=== PATIENT | female | born 1945 | race Caucasian/White ===

== ENCOUNTER → 2018-06-29 | Outpatient (CLI) | payer OTHER ==
[~2018-06-29] MED LIST: CARVEDILOL12.5 MG PO; CLONIDINE0.1; PAIN & FEVER325 MG PO; TOPROL XL50 MG; XARELTO10 M1 PO
--- NOTE | 2018-06-29 17:25 | CARDNUC ---
[place] [address] CARDIAC NUCLEAR IMAGING REPORT Name: SARINA LOPEZ Room: [facility]#: [id number] Admission: 06/29/18 Attend Phys: Chencho Mac, Discharge: Date of : 41 Date of Service: 06/29/18 1725 Report #: [id number] THIS REPORT FOR: //name// APPROVED REPORT Study performed: 06/29/2018 14:14:40 Exam: Nuclear Stress Test Indication: Dyspnea Patient Location: Out-Patient Stress Tech: Sunita Stress Nurse: Jasmine Wiggins RN NM Tech:BERNARDA Yeager Ht: 5 ft 6 in Wt: 192 lbs BSA: 1.97 m2 BMI: 30.98 Medical History Medical History: hypertension, a fib Medications: amlodipine, digoxin, hctz, carvedilol, xarelto Allergies: nkda Cardiac Risk Factors: age, hypertension, family hx Exercise History: Sedentary Meds Held (24 hrs): carvedilol Stress Test Details Stress Test: Pharmacologic stress testing performed using 0.4 mg of regadenoson per 5 mL given IV over 10 seconds. Reason for pharmacologic stress test: physical limitation. HR Resting HR: 71 bpm Max Heart Rate (APMHR): 146 bpm Max HR Achieved: 72 bpm Target HR (85% APMHR): 124 bpm % of APMHR: 49 Recovery HR: 77 bpm BP Resting BP: 158/54 mmHg Max BP: 185/50 mmHg ECG Resting ECG: atrial fibrillation with right bundle-branch block and diffuse ST segment depression with T-wave inversion Stress ECG: atrial fibrillation with right [place] [address] CARDIAC NUCLEAR IMAGING REPORT Name: SARINA LOPEZ Room: [facility]#: [id number] Admission: 06/29/18 Attend Phys: Chencho Mac, Discharge: Date of : 41 Date of Service: 06/29/18 1725 Report #: [id number] segment depression with T-wave inversion ST Change: None Arrhythmia: None Recovery ECG: atrial fibrillation with right bundle-branch block and diffuse ST segment depression with T-wave inversion Recovery ST Change: None Recovery Arrhythmia: None Clinical Reason for Termination: Completed protocol Exercise duration: 0 min sec Exercise capacity: 1 METs The patient tolerated Lexiscan infusion without significant symptoms. Nurse Comments pt gait to unsteady to walk on treadmill Stress ECG Conclusion The baseline 12-lead EKG shows atrial fibrillation. There is a right bundle-branch block. There is diffuse T-wave inversion with ST segment depression. EKGs obtained during and post Lexiscan infusion showed no significant changes in morphology. There were no other stress-induced arrhythmias. NM EXAM: Myocardial Perfusion REST/STRESS Imaging Protocol: Rest Tc-99m/Stress Tc-99m 1 day Resting Data Rest SPECT myocardial perfusion imaging was performed in supine position 30 minutes following the intravenous injection of 10.9 mCi of Tc-99m Sestamibi. Time of rest injection: 1300 Date: 06/29/2018 The images were gated to evaluate regional wall motion and calculate left ventricular ejection fraction. Administration Route: IV Administration Site: Left AC Pharmacologic Stress Pharmacologic stress test was performed by injecting Regadenoson 0.4 mg IV push followed by the intravenous injection of 32.2 mCi of Tc-99m Sestamibi. Time of stress injection: 1415 Date: 06/29/2018 Administration Route: IV Administration Site: Left AC Gated Stress SPECT was performed 40 [place] [address] CARDIAC NUCLEAR IMAGING REPORT Name: SARINA LOPEZ Room: [facility]#: [id number] Admission: 06/29/18 Attend Phys: Chencho Mac, Discharge: Date of : 41 Date of Service: 06/29/18 1725 Report #: [id number] injection. The images were gated to evaluate regional wall motion and calculate left ventricular ejection fraction. Study Quality Study: Good Artifact: Mild Breast artifact Study Data At rest, the left ventricular ejection fraction was 73%.. Post stress, the left ventricular ejection was 74%.. TID = 0.98. Perfusion There is a small size mild intensity defect involving the mid to distal anterior wall on both stress and rest images. No reversible defects are identified. Gated images show normal wall motion in the region of the mid to distal anterior wall suggesting breast attenuation artifact. Wall Motion Normal left ventricular wall motion. Nuclear Conclusion ECG Findings: non-diagnostic Clinical Findings: negative for ischemia Nuclear Findings: negative for ischemia Exercise Capacity: not assessed Left Ventricular Function: normal Risk Study: low The defect in the anterior wall is likely due to breast attenuation artifact. There is normal global LV systolic function on gated images. There were no reversible defects to suggest ischemia. This appears to be a low risk study. <Conclusion> The baseline 12-lead EKG shows atrial fibrillation. There is a right bundle-branch block. There is diffuse T-wave inversion with ST segment depression. EKGs obtained during and post Lexiscan infusion showed no significant changes in morphology. There were no other stress-induced arrhythmias. <ELECTRONICALLY SIGNED> By: Chencho Mac MD, [facility] 06/29/18 1725 24 24 Chencho Mac MD, FACC /INF
== END ==
LOC: M.NUC 06-09 16:55
DX: R06.09 Other forms of dyspnea (principal); I48.2 Chronic atrial fibrillation; E78.5 Hyperlipidemia, unspecified; I10 Essential (primary) hypertension; G47.33 Obstructive sleep apnea (adult) (pediatric); Z90.49 Acquired absence of other specified parts of digestive tract; Z90.710 Acquired absence of both cervix and uterus; Z82.49 Family history of ischemic heart disease and other diseases of the circulatory system; Z83.3 Family history of diabetes mellitus; Z79.899 Other long term (current) drug therapy

== ENCOUNTER → 2020-05-14 | Outpatient (CLI) | payer OTHER ==
[2020-05-14 09:12] LABS: CHOLESTEROL 248 mg/dL (<200); HDL CHOLESTEROL 41 mg/dL (>40); LDL CHOLESTEROL 149 mg/dL (<100); TRIGLYCERIDE 290 mg/dL (<150); VLDL 58 mg/dL (<40)
[2020-05-14 09:16] LABS: SERUM ASSESSMENT Clear
== END ==
LOC: M.LAB 08:12
PROVIDERS: ATTEND Internal Medicine Cardiovascular Disease
DX: E78.2 Mixed hyperlipidemia (principal)